=== PATIENT | male | born 1955 | race Caucasian/White ===

== ENCOUNTER 2016-12-22 11:20 | Emergency (ER) | payer OTHER ==
[~2016-12-22] VITALS: Ht 193 cm; Wt 117.0 kg
[~2016-12-22 11:20] MED LIST: DICL75 PO; NIAS10004 PO; TRAM50 PO
[2016-12-22 11:35] VITALS: BP 120/78; PULSE 56; RESP 16; TEMP 98.3; O2SAT 94
--- NOTE | 2016-12-22 12:20 | RADHPO ---
EXAM DATE/TIME: 12/22/2016 12:01 [facility] COMPARISON: No previous studies available for comparison. INDICATIONS : Left foot pain after fall. MEDICAL HISTORY : None. SURGICAL HISTORY : None. ENCOUNTER: Initial ACUITY: 2 weeks PAIN SCORE: 10/10 LOCATION: Left lateral foot FINDINGS: Three view examination of the left foot demonstrates no soft tissue swelling, dislocation, or fractur e. The tarsal bones appear intact. The interphalangeal and metatarsophalangeal joints are intact. The calcaneus is intact. Bony mineralization is normal. CONCLUSION: 1. There is no evidence of acute fracture. Bony mineralization is normal. A posterior calcaneal spur is present. Joint spaces are maintained. 2. There is no evidence of acute fracture. Herb Gipson MD on December 22, 2016 at 12:18 Board Certified Radiologist. This report was verified electronically.
--- NOTE | 2016-12-22 13:06 | PD ---
HPI Chief Complaint: Injury Time Seen by Provider: 12:45 Travel History International Travel<30 days: No Contact w/Intl Traveler<30days: No Traveled to known affect area: No History of Present Illness HPI 61-year-old male presents for evaluation of left foot pain. A few weeks ago the patient stepped on a rock outside of his house. Since then he has had pain in the lateral plantar aspect left foot. Pain is reproduced with walking. Pain has persisted which prompted evaluation. 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 He denies any new trauma. He denies any other injuries and has no other complaints at this time. FOR[facility]LY [facility] Past Medical History High Cholesterol: Yes Diminished Hearing: No Influenza Vaccination: No ?: Not Past Surgical History Other Surgery: Yes (Nose surgery ) Social History Alcohol Use: Yes (OCC) Tobacco Use: No Substance Use: No Allergies-Medications (Allergen,Severity, Reaction): Coded Allergies: No Known Allergies (Unverified , 12/22/16) Reported Meds & Prescriptions Reported Meds & Active Scripts Active No Active Prescriptions or Reported Medications Review of Systems Musculoskeletal: Positive: Pain, No: Limited ROM Skin: Positive Other (positive for pain) Physical Exam Narrative GENERAL: Well developed well-nourished male in no acute distress SKIN: Warm and dry. No bruising, soft tissue swelling, puncture wounds. CARDIOVASCULAR: Regular rate and rhythm. No murmur appreciated. RESPIRATORY: No accessory muscle use. Clear to auscultation. Breath sounds equal bilaterally. MUSCULOSKELETAL: No obvious deformities. There is some tenderness to palpation along the lateral plantar aspect of the left midfoot. The patient maintains full range of motion of the left ankle and the toes. Distal sensation and pulses are preserved. NEUROLOGICAL: Awake and alert. No obvious cranial nerve deficits. Motor grossly within normal limits. Normal speech. Data Data Last Documented VS Vital Signs Date Time Temp Pulse Resp B/P Pulse Ox O2 Delivery O2 Flow Rate FiO2 12/22/16 11:35 98.3 56 16 120/78 94 Orders Foot, Complete ([id number]) (12/22/16 ) [facility] Medical Decision Making Medical Screen Exam Complete: Yes Emergency Medical Condition: Yes Medical Record Reviewed: Yes Differential Diagnosis Contusion, tendinitis, plantar fasciitis, subacute fracture, puncture wound Narrative Course X-ray imaging reveals no acute abnormalities, calcaneal spur. I suspect a soft tissue injury to the plantar aspect of left foot which is not healing because the patient has to walk several miles a day. I recommended activity modification, ice pack several times a day, [id number] ibuprofen for discomfort. He is being discharged with a postop shoe. Diagnosis Primary Impression: Soft tissue injury of left foot Additional Instructions: Decreased the amount that he or walking. Ice pack several times a day 10-15 minutes at a time to the affected area. Take [id number] ibuprofen as needed for pain. Take with meals. Follow-up with primary care physician in 2 weeks. Return for any emergent medical conditions. Med/Other Pt SpecificInfo: Orthopedic Instructions Scripts No Active Prescriptions or Reported Meds Disposition: 01 DISCHARGE HOME Condition: Stable Nuno Sims Dec 22, 2016 13:06
== END 2016-12-22 13:21 | disposition home or self-care (01) ==
LOC: PHEFT 11:20
DX: S99.922A Unspecified injury of left foot, initial encounter (principal); W22.8XXA Striking against or struck by other objects, initial encounter; Y92.009 Unspecified place in unspecified non-institutional (private) residence as the place of occurrence of the external cause
CPT/HCPCS: 73630; 99283; L3260

== ENCOUNTER 2017-08-11 10:18 | Emergency (ER) | payer OTHER ==
[~2017-08-11] VITALS: Ht 193 cm; Wt 114.0 kg
[2017-08-11 10:37] VITALS: BP 143/90; PULSE 52; RESP 15; TEMP 97.4; O2SAT 97
--- NOTE | 2017-08-11 11:09 | PD ---
HPI Chief Complaint: Syncope/Near-Syncope Time Seen by Provider: 10:54 Travel History International Travel<30 days: No Contact w/Intl Traveler<30days: No Traveled to known affect area: No History of Present Illness HPI This 61-year-old male says he feeling lightheaded and dizzy the last 24 hours. He has not had any chest pain. He has no history of heart disease. He had rotator cuff surgery last February. Yesterday he had physical therapy on his shoulder. He has a history of high lipids and is on Niaspan and fish oil. He has no history of syncope. He says that his heart rate tends to be low. In the past he used to exercise a lot. He does not smoke. Has not had surgery beyond the rotator cuff. [facility]. He also takes CoQ10 PFSH Past Medical History High Cholesterol: Yes Diminished Hearing: No Tetanus Vaccination: < 5 Years Influenza Vaccination: No Past Surgical History Other Surgery: Yes (Nose surgery, r rotator cuff) Social History Alcohol Use: Yes (OCC) Tobacco Use: No Substance Use: No Allergies-Medications (Allergen,Severity, Reaction): Coded Allergies: No Known Allergies (Unverified , 08/11/17) Reported Meds & Prescriptions Reported Meds & Active Scripts Active Reported Niacin 500 Mg Tab 500 Mg PO DAILY Review of Systems General / Constitutional: No: Fever, Chills Eyes: No: Diploplia, Blurred Vision HENT: Positive: Lightheadedness, No: Headaches Cardiovascular: No: Chest Pain or Discomfort, Palpitations Respiratory: No: Shortness of Breath Gastrointestinal: No: Nausea, Vomiting Genitourinary: No: Urgency, Frequency Musculoskeletal: No: Myalgias, Arthralgias Skin: No Rash, No Itching Neurologic: Positive: Weakness, Dizziness, No: Syncope, Focal Abnormalities Hematologic/Lymphatic: No: Easy Bruising Physical Exam Narrative GENERAL: Well-developed male SKIN: Focused skin assessment warm/dry. HEAD: Atraumatic. Normocephalic. EYES: Pupils equal and round. No scleral icterus. No injection or drainage. ENT: No nasal bleeding or discharge. Mucous membranes pink and moist. NECK: Trachea midline. No JVD. CARDIOVASCULAR: Regular rate and rhythm. No murmur appreciated. RESPIRATORY: No accessory muscle use. Clear to auscultation. Breath sounds equal bilaterally. GASTROINTESTINAL: Abdomen soft, non-tender, nondistended. Hepatic and splenic margins not palpable. MUSCULOSKELETAL: No obvious deformities. No clubbing. No cyanosis. No edema. NEUROLOGICAL: Awake and alert. No obvious cranial nerve deficits. Motor grossly within normal limits. Normal speech. PSYCHIATRIC: Appropriate mood and affect; insight and judgment normal. Data Data Last Documented VS Vital Signs Date Time Temp Pulse Resp B/P (MAP) Pulse Ox O2 Delivery O2 Flow Rate FiO2 08/11/17 12:49 48 16 128/86 (100) 95 Room Air 08/11/17 10:37 97.4 Orders Orders Electrocardiogram (08/11/17 11:05) Complete Blood Count With Diff (08/11/17 11:05) Basic Metabolic Panel (Bmp) (08/11/17 11:05) Troponin I (08/11/17 11:05) Magnesium (Mg) (08/11/17 11:05) Thyroid Stimulating Hormone (08/11/17 11:05) Orthostatic Vital Signs (08/11/17 11:06) Chest, Pa & Lat (08/11/17 12:00) Labs Laboratory Tests Test 08/11/17 11:19 White Blood Count 3.6 TH/MM3 Red Blood Count 4.95 MIL/MM3 Hemoglobin 14.8 GM/DL Hematocrit 43.0 % Mean Corpuscular Volume 86.8 FL Mean Corpuscular Hemoglobin 29.9 PG Mean Corpuscular Hemoglobin Concent 34.4 % Red Cell Distribution Width 12.2 % Platelet Count 242 TH/MM3 Mean Platelet Volume 6.4 FL Neutrophils (%) (Auto) 52.7 % Lymphocytes (%) (Auto) 30.3 % Monocytes (%) (Auto) 14.6 % Eosinophils (%) (Auto) 1.6 % Basophils (%) (Auto) 0.8 % Neutrophils # (Auto) 1.9 TH/MM3 Lymphocytes # (Auto) 1.1 TH/MM3 Monocytes # (Auto) 0.5 TH/MM3 Eosinophils # (Auto) 0.1 TH/MM3 Basophils # (Auto) 0.0 TH/MM3 CBC Comment DIFF FINAL Differential Comment Blood Urea Nitrogen 15 MG/DL Creatinine 1.10 MG/DL Random Glucose 97 MG/DL Calcium Level 8.7 MG/DL Magnesium Level 2.2 MG/DL Sodium Level 133 MEQ/L Potassium Level 4.1 MEQ/L Chloride Level 99 MEQ/L Carbon Dioxide Level 27.6 MEQ/L Anion Gap 6 MEQ/L Estimat Glomerular Filtration Rate 69 ML/MIN Troponin I LESS THAN 0.02 NG/ML Thyroid Stimulating Hormone 3rd Gen 1.960 uIU/ML MDM Medical Decision Making Medical Screen Exam Complete: Yes Emergency Medical Condition: Yes Medical Record Reviewed: Yes Differential Diagnosis Differential includes anemia, dysrhythmia, electrolyte imbalance Narrative Course Follows evaluating the patient he complained of increasing dizziness. At that point I looked at the monitor and he appeared to be having a narrow complex tachycardia at just over 100. It was quite brief and was not recorded by the monitor. Patient had an ongoing complaint of feeling a bit lightheaded. Heart rate has been around 50 and he believes he normally is around 55. Patient did not have any further dysrhythmia. He had intermittent complaints of lightheadedness that he felt better during his hospital stay. His lab work is unremarkable. His heart rate is been around 50 most of the time. He says he normally has a heart rate around 55 etiology for his lightheadedness has not been found. He appears stable and he'll be released. I recommended that he stop his medication. He is on Niaspan 500 mg daily as well as fish oil and multiple [id number] medications. He is stable for discharge Diagnosis Primary Impression: Lightheadedness Additional Impression: Adverse drug reaction Additional Instructions: Stop all medications Disposition: 01 DISCHARGE HOME Condition: Stable Sriram Ibanez MD Aug 11, 2017 11:09
[2017-08-11 11:25] LABS: AUTOMATED NEUTROPHIL # 1.9 TH/MM3 (1.8-7.7); BASOPHIL % 0.8 % (0.0-2.0); EOSINOPHIL # 0.1 TH/MM3 (0-0.4); EOSINOPHIL % 1.6 % (0.0-4.0); HEMOGLOBIN 14.8 GM/DL (13.0-17.0); LYMPH % 30.3 % (9.0-44.0); LYMPHOCYTE # 1.1 TH/MM3 (1.0-4.8); MEAN CELL VOLUME 86.8 FL (80.0-100.0); MEAN CORPUSCULAR HEMOGLOBIN 29.9 PG (27.0-34.0); MEAN CORPUSCULAR HGB CONC 34.4 % (32.0-36.0); MEAN PLATELET VOLUME 6.4 FL (7.0-11.0); MONO % 14.6 % (0.0-8.0); MONOCYTE # 0.5 TH/MM3 (0-0.9); NEUT % 52.7 % (16.0-70.0); PLATELET COUNT 242 TH/MM3 (150-450); RED BLOOD COUNT 4.95 MIL/MM3 (4.50-5.90); RED CELL DISTRIBUTION WIDTH 12.2 % (11.6-17.2); WHITE BLOOD COUNT 3.6 TH/MM3 (4.0-11.0)
[2017-08-11 11:31] LABS: CHLORIDE 99 MEQ/L (98-107); SODIUM (NA) 133 MEQ/L (136-145)
[2017-08-11 11:33] LABS: CALCIUM 8.7 MG/DL (8.5-10.1)
[2017-08-11 11:34] VITALS: BP_SYST 131; BP_SYST 139; BP_SYST 154; BP_DIAS 86; BP_DIAS 89; BP_DIAS 93; RESP 16
[2017-08-11 11:34] LABS: BICARBONATE 27.6 MEQ/L (21.0-32.0); BLOOD UREA NITROGEN 15 MG/DL (7-18); GLUCOSE,RANDOM 97 MG/DL (74-106); MAGNESIUM 2.2 MG/DL (1.5-2.5)
[2017-08-11 11:37] LABS: GLOMERULAR FILTRATION RATE 69 ML/MIN (>89)
[2017-08-11 11:42] LABS: TROPONIN I LESS THAN 0.02 NG/ML (0.02-0.05)
[2017-08-11 11:49] VITALS: PULSE 46; RESP 16; O2SAT 95
[2017-08-11] MEDS ORDERED: NIAC500T5 PO (11:49)
[2017-08-11 12:49] VITALS: BP 128/86; PULSE 48; RESP 16; O2SAT 95
--- NOTE | 2017-08-11 13:34 | RADRPT ---
EXAM DATE/TIME: 08/11/2017 12:19 [facility] COMPARISON: No previous studies available for comparison. INDICATIONS : Syncopal episode. MEDICAL HISTORY : Hypercholesterolemia. SURGICAL HISTORY : Right rotator cuff. ENCOUNTER: Initial ACUITY: 1 day PAIN SCORE: 0/10 LOCATION: Chest FINDINGS: Minimal left basilar streakiness is noted consistent with atelectasis and/or scarring. The right chito g is clear. The heart is normal. CONCLUSION: Minimal left basilar streakiness consistent with atelectasis and/or scarring. Karlo Barajas MD on August 11, 2017 at 12:48 Board Certified Radiologist. This report was verified electronically.
--- NOTE | 2017-08-12 07:38 | EKG ---
Date Performed: 08/11/2017 Time Performed: 11:24:31 PTAGE: 61 years EKG: SINUS BRADYCARDIA LEFT ANTERIOR FASCICULAR BLOCK ABNORMAL ECG NO PREVIOUS TRACING DOCTOR: Bismark Mejia Interpretating Date/Time 08/12/2017 07:37:29
== END 2017-08-11 13:32 | disposition home or self-care (01) ==
LOC: PHED 10:18
DX: R42 Dizziness and giddiness (principal); R00.0 Tachycardia, unspecified; T50.905A Adverse effect of unspecified drugs, medicaments and biological substances, initial encounter
CPT/HCPCS: 71020; 80048; 83735; 84443; 84484; 85025; 93005